=== PATIENT | male | born 1980 | race Caucasian/White ===

== ENCOUNTER 2017-12-30 16:58 | Emergency (ER) | payer BC ==
--- NOTE | 2017-12-30 17:02 | EDM.PDOC ---
ED HPI GENERAL MEDICAL PROBLEM - General Chief Complaint: General Stated Complaint: left finger lacerations Time Seen by Provider: 12/30/17 17:00 Source of Information: Reports: Patient, Family (). Denies: Old Records ( No [facility] records available) History Limitations: Reports: No Limitations - History of Present Illness INITIAL COMMENTS - FREE TEXT/NARRATIVE: The patient was brought to the emergency room via private automobile by his mother for evaluation of 2 lacerations on his left hand, [place] about 16:30 hours this afternoon. He did rinse out the laceration sites with tapwater with no other medications, wound care, etc. He has not injured these digits in the past. He is right-handed. He did receive a tetanus booster earlier this year. The patient denies any chest pain/ pressure, heart flutter, dizziness, orthostasis, orthopnea, diaphoresis, paresthesias, recent decreased exercise tolerance, or any other anginal-type symptoms. No recent history of abdominal pain, heartburn, nausea, diarrhea, melena, gross hematochezia, or any food intolerance, including fatty foods, etc.. The patient also denies any recent fever, cough, wheezing, dyspnea, etc.. No history of paresthesias, neurological deficits, or other complaints or injuries. Onset: Today, Sudden Onset Date: 12/30/17 Onset Time: 16:30 Duration: Constant Location: Reports: Upper Extremity, Left. Denies: Head, Face, Neck, Chest, Abdomen, Back, Pelvis, Upper Extremity, Right, Radiates to Quality: Reports: Throbbing Severity: Moderate Improves with: Reports: Rest Worsens with: Reports: Movement Context: Reports: Trauma (As above) Associated Symptoms: Denies: Confusion, Chest Pain, Cough, Diaphoresis, Fever/ Chills, Nausea/Vomiting, Shortness of Breath, Syncope, Weakness Treatments CREDENTIALING COORDINATOR: Reports: Other (see below) (As above) Left Hand Pain Score (Numeric/FACES): 7 - Related Data Allergies Allergy/AdvReac Type Severity Reaction Status Date / Time No Known Allergies Allergy Verified 12/30/17 19:40 Home Meds: Home Meds Amoxicillin/Potassium Clav [Augmentin 875-125 Tablet] 1 each PO BIDMEALS #20 tablet 09/18/18 [Rx] Past Medical History Endocrine/Metabolic History: Reports: Obesity/BMI 30+ - Infectious Disease History Infectious Disease History: Reports: Meningitis (Viral meningitis in 2015.) Social & Family History - Tobacco Use Smoking Status *Q: Current Every Day Smoker Tobacco Use Within Last Twelve Months: Snuff/Dip Years of Tobacco use: 19 Packs/Tins Daily: 0.3 Used Tobacco, but Quit: No Month/Year Tobacco Last Used: Started chewing tobacco use at age 18 with average use of 2 cans per week. Smoking Cessation Information Provided To Patient: Yes Second Hand Smoke Exposure: No Second Hand Smoke Education Provided: No - Living Situation & Occupation Living situation: Reports: (3 children), with Family Occupation: Employed ([employer]) ED ROS GENERAL - Review of Systems Review Of Systems: ROS reveals no pertinent complaints other than HPI. ED EXAM, GENERAL - Physical Exam Exam: See Below Exam Limited By: No Limitations General Appearance: Alert, WD/WN, No Apparent Distress Head: Atraumatic, Normocephalic Neck: Normal Inspection, Supple, Non-Tender, Full Range of Motion. No: Lymphadenopathy (L), Lymphadenopathy (R), Thyromegaly Respiratory/Chest: No Respiratory Distress, Lungs Clear, Normal Breath Sounds, No Accessory Muscle Use, Chest Non-Tender. No: Pleural Rub, Retractions Cardiovascular: Normal Peripheral Pulses, Regular Rate, Rhythm, No Edema, No Gallop, No JVD, No Murmur, No Rub. No: Gallop/S3, Gallop/S4, Friction Rub Peripheral Pulses: 2+: Radial (L), Radial (R) GI/Abdominal: Normal Bowel Sounds, Soft, Non-Tender, No Organomegaly, No Distention, No Abnormal Bruit, No Mass, Pelvis Stable, Other (Obese). No: Guarding (Male) Exam: Deferred Rectal (Males) Exam: Deferred Back Exam: Normal Inspection, Full Range of Motion. No: CVA Tenderness (L), CVA Tenderness (R), Muscle Spasm Extremities: Normal Range of Motion, No Pedal Edema, Normal Capillary Refill, Other (2 cm in length superficial laceration of the palmar surface of the distal phalanx of digit #2 of the left hand. 4 cm in length irregular deep laceration of both the palmar and extensor surface of the midportion of the distal phalanx of digit #3 of the left hand with no nail involvement. No evidence of foreign body, deformity, dislocation, crepitation, tendon/nerve injury, significant bleeding, etc.). No: Joint Swelling, Colin's Sign, Increased Warmth Neurological: Alert, Oriented, CN II-XII Intact, Normal Cognition, Normal Gait, Normal Reflexes, No Motor/Sensory Deficits Psychiatric: Normal Affect, Normal Mood Skin Exam: Wound/Incision (As above). No: Diaphoretic, Ecchymosis, Lymphangitis , Petechiae Lymphatic: No Adenopathy ED GENERAL MEDICAL PROCEDURES - Laceration/Wound Repair Left Distal Digit - 2nd (Index) Lac/wound length in cm: 2 Appearance: Superficial, Moderately Contaminated Distal NVT: Neuro & Vascular Intact, No Tendon Injury Anesthetic Type: Local Local Anesthesia - Lidocaine (Xylocaine): 0.5% Plain Local Anesthetic Volume: 4cc Skin Prep: Providone-Iodine (Betadine), Other (Surgical scrub sponge) Saline irrigation (cc's): 5 Exploration/Debridement/Repair: Wound Explored, In a Bloodless Field, Explored to Base, No Foreign Material Found Closed with: Sutures Suture Size: 4-0 # of Sutures: 7 Suture Type: Nylon, Interrupted, Simple Drain Placement: No Sterile Dressing Applied: Nurse Tetanus Status Addressed: Yes Complications: No Left Distal Digit - 3rd (Middle) Lac/wound length in cm: 4.0 Appearance: Subcutaneous, Moderately Contaminated Distal NVT: Neuro & Vascular Intact, No Tendon Injury Anesthetic Type: Local Local Anesthesia - Lidocaine (Xylocaine): 0.5% Plain Local Anesthetic Volume: Other (8 ML) Skin Prep: Providone-Iodine (Betadine), Other (Surgical scrub sponge) Saline irrigation (cc's): 15 Exploration/Debridement/Repair: Wound Explored, In a Bloodless Field, Explored to Base, No Foreign Material Found Closed with: Sutures Suture Size: 4-0 # of Sutures: 12 Suture Type: Nylon, Interrupted, Simple Drain Placement: No Sterile Dressing Applied: Nurse Tetanus Status Addressed: Yes Complications: No Course - Vital Signs Last Recorded V/S: Last Vital Signs Temp 37.2 C 12/30/17 18:41 Pulse 74 12/30/17 18:41 Resp 18 12/30/17 18:41 BP 117/98 H 12/30/17 18:41 Pulse Ox 93 L 12/30/17 18:41 Vital Signs - 24 hr 12/30/17 12/30/17 17:00 18:41 Temperature [ 37.2 C 37.2 C Temporal] Pulse, 74 74 Peripheral [ Right Pulse Oximetry] Respiratory 18 18 Rate Blood Pressure 117/98 H 117/98 H [Right Upper Arm] O2 Sat by Pulse 93 L 93 L Oximetry - Orders/Labs/Meds Orders: Active Orders 24 hr Category Date Time Status Hand Comp Min 3V Lt [CR] Stat Exams 12/30/17 17:51 Taken Obtain Past Medical Record [OM.PC] Routine Oth 12/30/17 17:02 Active Labs: None Meds: Medications Discontinued Medications Generic Name Dose Route Start Last Admin Trade Name Freq PRN Reason Stop Dose Admin Amoxicillin/Clavulanate Potassium 1 tab 12/30/17 18:10 Augmentin 875 Mg/125 Mg PO 12/30/17 18:11 ONETIME ONE Lidocaine HCl 50 ml 12/30/17 17:03 Xylocaine-Mpf 0.5% INJECT 12/30/17 17:04 ONETIME ONE Neomycin/Polymyxin/Bacitracin 1 each 12/30/17 17:03 Triple Antibiotic Oint TOP 12/30/17 17:04 ONETIME ONE Note dosage of lidocaine used in the procedure note as above. - Radiology Interpretation Free Text/Narrative:: X-rays of the left hand, 3 views, shows evidence of a mild chip fracture of the radial surface of the proximal aspect of the distal phalanx of digit #3 with no evidence of other foreign body, dislocation, etc. Departure - Departure Time of Disposition: 18:40 Disposition: Home, Self-Care 01 Condition: Good Clinical Impression: Laceration, Open fracture, Tobacco abuse counseling - Discharge Information *PRESCRIPTION DRUG MONITORING PROGRAM REVIEWED*: Not Applicable *COPY OF PRESCRIPTION DRUG MONITORING REPORT IN PATIENT MAIRA: Not Applicable Prescriptions: Amoxicillin/Potassium Clav [Augmentin 875-125 Tablet] 1 each PO BIDMEALS #20 tablet Instructions: Finger Fracture, [id number], Stitches, Nancy, or Adhesive Wound Closure, [id number], Incision Care, Adult, [id number] Forms: ED Department Discharge Additional Instructions: 1. Followup with your regular provider in 10-14 days as directed for suture removal and repeat x-rays of digit #3 of the left hand. Bring these discharge instructions with you to that visit. 2. Tylenol 650 mg by mouth every 4 hours and/or OTC ibuprofen 2-3 tabs by mouth every 6 hours with food as directed./needed. 3. Antibacterial soap wash/soak with subsequent antibacterial dressing such as Neosporin, etc. as directed 2 times per day until the wound or laceration site completely heals. Keep the area clean and dry with activity restrictions as discussed. 4. Wear your finger splints at all times with exception of bathing and wound care to protect her fingers and the laceration sites as needed. 5. Stop all tobacco use KARMA as directed/per provided information and consider contacting Quit LIne, etc.. - Problem List & Annotations (1) Laceration SNOMED Code(s): 279229134 Code(s): BEO3175 - Status: Acute Priority: High Onset Date: 12/30/17 Annotation/Comment:: Excellent results with laceration repair as above. DTaP given on , which was burned by the emergency room nurse thru [facility]. Secondary to open fracture Augmentin therapy was initiated in the emergency room. Close follow-up by regular provider. This is not a Workmen's Compensation injury. Activity restrictions, wound care, etc. discussed. Patient was provided finger splint for protection. Blood pressure somewhat elevated in the emergency room likely secondary to his discomfort. No previous history of hypertension. Continue to observe closely by his regular provider. (2) Open fracture SNOMED Code(s): 779374520, 947137458 Code(s): T14.8XXA - OTHER INJURY OF UNSPECIFIED BODY REGION, INITIAL ENCOUNTER Status: Acute Priority: High Onset Date: 12/30/17 Annotation/ Comment:: Small chip fracture of the proximal portion of the distal phalanx as above. Open fracture secondary to laceration. Augmentin therapy initiated as above. Repeat x-rays at follow-up recommended. (3) Tobacco abuse counseling SNOMED Code(s): 065860409, [id number], [id number] Code(s): Z71.6 - TOBACCO ABUSE COUNSELING Status: Chronic Priority: Medium Annotation/Comment:: Patient counseled on the use of Nicorette gum with chewing tobacco cessation strongly encouraged and information provided. Note that patient does not like the taste of Nicorette gum. - Problem List Review Problem List Initiated/Reviewed/Updated: Yes - My Orders Last 24 Hours: My Active Orders 12/30/17 17:02 Obtain Past Medical Record [OM.PC] Routine 12/30/17 17:51 Hand Comp Min 3V Lt [CR] Stat - Assessment/Plan Last 24 Hours: My Active Orders 12/30/17 17:02 Obtain Past Medical Record [OM.PC] Routine 12/30/17 17:51 Hand Comp Min 3V Lt [CR] Stat Assessment:: As above Plan: As above. Extensive precautions were given to the patient and his , who are in agreement with the treatment plan. See Patient Instructions for further treatment and plan.
[2017-12-30] MEDS ORDERED: Bacitracin/Neomycin/Polymyxin B Oint 0.9 GM U/D Packet TOP ONE (17:03)
[2017-12-30] MEDS ORDERED: Lidocaine 0.5% 50 ML SDV INJECT ONE (17:03)
[2017-12-30] MEDS ORDERED: Amoxicillin/Clavulanate K 875-125 MG Tab PO ONE (18:10)
== END 2017-12-30 18:45 | disposition home or self-care (01) ==
LOC: LL.ED 16:58
DX: S62.603B Fracture of unspecified phalanx of left middle finger, initial encounter for open fracture (principal); S62.607B Fracture of unspecified phalanx of left little finger, initial encounter for open fracture; S61.211A Laceration without foreign body of left index finger without damage to nail, initial encounter; Z23 Encounter for immunization; Z71.6 Tobacco abuse counseling; W31.89XA Contact with other specified machinery, initial encounter
CPT/HCPCS: 12002; 73130-LT; 99283; A9270-GY